=== PATIENT | female | born 1995 | race Caucasian/White ===

== ENCOUNTER → 2018-03-07 17:23 | Outpatient (CLI) | payer OTHER, SELFPAY ==
[2018-03-07 19:41] LABS: HIV 1 and 2 Antibody NEGATIVE (NEGATIVE); Hep C Virus Ab w/Reflex Quant NEGATIVE s/c (NEGATIVE)
[2018-03-07 20:20] LABS: Urine N gonorrhoeae NOT DETECTED
[2018-03-07 20:37] LABS: Urine Chlamydia NOT DETECTED
[2018-03-10 07:57] LABS: Hepatitis B Core Antibody Nonreactive (Nonreactive)
[2018-03-10 13:48] LABS: HSV 1 IgM Screen Negative (Negative); HSV 2 IgM Screen Negative (Negative)
[2018-03-10 14:07] LABS: RPR Screen Nonreactive (Nonreactive)
== END ==
PROVIDERS: PCP Family Medicine; Visit Provider Physician Assistant
DX: A64 Unspecified sexually transmitted disease (principal); Z11.3 Encounter for screening for infections with a predominantly sexual mode of transmission
CPT/HCPCS: 36415; 86592; 86694; 86703; 86704; 86803; 87491; 87591